=== PATIENT | male | born 1990 | race Caucasian/White ===

== ENCOUNTER → 2020-05-18 | Outpatient (CLI) | payer OTHER ==
--- NOTE | 2020-05-18 14:28 | RAD ---
AP and lateral views lumbar spine 05/18/2020 INDICATION: Low back pain COMPARISON STUDY: None FINDINGS: There is no evidence of acute fracture or alignment abnormality. Vertebral body heights are maintained. Disc spaces are relatively maintained. There is grade 1 anterolisthesis of L5 on S1 possibly due to bilateral spondylolysis at this level. There is associated facet arthrosis. Surgical clips noted in the pelvis right lower quadrant. To 3 mm Punctate radiopacity projecting over the left renal shadow could represent nephrolithiasis. No other acute soft tissue changes are seen. IMPRESSION: 1. No evidence of acute osseous abnormality 2. Grade 1 anterolisthesis L5 on S1 possibly secondary to bilateral spondylolysis. Associated degenerative changes noted. 3. 2 to 3 mm radiopacity projecting over left renal shadow could represent nephrolithiasis or artifactual Electronically signed by: Lucio Keating MD (05/18/2020 2:25 PM) [id number]
--- NOTE | 2020-05-18 16:52 | RAD ---
EXAM: Left foot, 3 views. HISTORY: Pain. COMPARISON: None. FINDINGS: 3 views of the left foot are obtained. There is no fracture, dislocation or subluxation. IMPRESSION: No acute osseous finding. Electronically signed by: Chelly Onofre MD (05/18/2020 4:48 PM) [facility]
== END | disposition home or self-care (01) ==
LOC: RAD 12:30
PROVIDERS: ATTEND Family Medicine
DX: M47.27 Other spondylosis with radiculopathy, lumbosacral region (principal); M43.17 Spondylolisthesis, lumbosacral region
CPT/HCPCS: 72100; 73620